=== PATIENT | female | born 1970 | race Native Hawaiian/Other Pacific Islander ===

== ENCOUNTER 2016-09-20 19:25 | Emergency (ER) | payer OTHER ==
[~2016-09-20] VITALS: Ht 167.6 cm; Wt 58.1 kg
[~2016-09-20 19:25] MED LIST: LIPITOR10 MG PO
[2016-09-20 20:06] LABS: PLATELET COUNT 287 K/uL (152-353)
[2016-09-20 20:56] VITALS: BP 111/69; TEMP 98.9
== END 2016-09-20 20:57 | disposition home or self-care (01) ==
LOC: ED 19:25
DX: R10.84 Generalized abdominal pain (principal); R80.8 Other proteinuria
CPT/HCPCS: 36415; 81000; 85027; 99283

== ENCOUNTER 2017-02-20 13:57 | Outpatient (CLI) | payer OTHER ==
[2017-02-20 14:35] LABS: PLATELET COUNT 347 K/uL (152-353)
[2017-02-20 15:29] LABS: POTASSIUM 4.1 mmol/L (3.6-5.2); SODIUM 133 mmol/L (136-145)
== END 2017-02-20 15:00 | disposition home or self-care (01) ==
LOC: LAB 13:57
PROVIDERS: Nurse Practitioner Family
DX: Z00.00 Encounter for general adult medical examination without abnormal findings (principal); K21.9 Gastro-esophageal reflux disease without esophagitis; E78.4 Other hyperlipidemia; R53.83 Other fatigue; R53.81 Other malaise; Z79.899 Other long term (current) drug therapy; Z51.81 Encounter for therapeutic drug level monitoring
CPT/HCPCS: 80053; 80061; 83036; 84436; 84443; 85027

== ENCOUNTER 2017-03-10 09:01 | Outpatient (CLI) | payer OTHER | END 2017-03-10 18:58 | disposition home or self-care (01) | LOC: MAMMO 09:01 | DX: Z12.31 Encounter for screening mammogram for malignant neoplasm of breast (principal) ==

== ENCOUNTER 2017-09-25 13:55 | Outpatient (CLI) | payer OTHER ==
[2017-09-25 14:17] LABS: PLATELET COUNT 308 K/uL (152-353)
== END 2017-09-25 20:28 | disposition home or self-care (01) ==
LOC: LAB 13:55
PROVIDERS: Nurse Practitioner Family
DX: Z79.899 Other long term (current) drug therapy (principal); Z51.81 Encounter for therapeutic drug level monitoring; E78.4 Other hyperlipidemia; K21.9 Gastro-esophageal reflux disease without esophagitis; R53.81 Other malaise
CPT/HCPCS: 80053; 80061; 82306; 83036; 84436; 84443; 85027; 85651

== ENCOUNTER 2018-05-04 11:07 | Outpatient (CLI) | payer OTHER | END 2018-05-04 19:42 | disposition home or self-care (01) | LOC: MAMMO 11:07 | DX: N63.20 Unspecified lump in the left breast, unspecified quadrant (principal) ==

== ENCOUNTER 2018-05-10 10:08 | Outpatient (CLI) | payer OTHER | END 2018-05-10 20:37 | disposition home or self-care (01) | LOC: US 10:08 | DX: R92.8 Other abnormal and inconclusive findings on diagnostic imaging of breast (principal) ==

== ENCOUNTER 2018-09-21 01:22 | Emergency (ER) | payer OTHER ==
[~2018-09-21] VITALS: Ht 167.6 cm; Wt 59.9 kg
[2018-09-21 03:04] VITALS: BP 121/84; TEMP 98
== END 2018-09-21 03:04 | disposition home or self-care (01) ==
LOC: ED 01:22
DX: M25.511 Pain in right shoulder (principal); R20.0 Anesthesia of skin
CPT/HCPCS: 99282

== ENCOUNTER 2020-03-08 19:16 | Emergency (ER) | payer OTHER | END 2020-03-08 19:37 | disposition home or self-care (01) | LOC: ED 19:16 | DX: M54.9 Dorsalgia, unspecified (principal); R10.9 Unspecified abdominal pain | CPT/HCPCS: 99281 ==

== ENCOUNTER 2020-07-06 08:52 | Outpatient (CLI) | payer OTHER | END 2020-07-06 19:42 | disposition home or self-care (01) | LOC: MAMMO 08:52 | PROVIDERS: ATTEND Nurse Practitioner Family | DX: N63.20 Unspecified lump in the left breast, unspecified quadrant (principal); Z12.31 Encounter for screening mammogram for malignant neoplasm of breast; F17.200 Nicotine dependence, unspecified, uncomplicated; N64.59 Other signs and symptoms in breast | CPT/HCPCS: G0279 ==

== ENCOUNTER 2021-07-21 09:19 | Outpatient (CLI) | payer OTHER ==
[~2021-07-21] VITALS: Ht 162.6 cm; Wt 83.9 kg
== END 2021-07-21 21:39 | disposition home or self-care (01) ==
LOC: US 09:19
PROVIDERS: ATTEND Nurse Practitioner Family
DX: R92.8 Other abnormal and inconclusive findings on diagnostic imaging of breast (principal)

== ENCOUNTER 2021-08-11 16:00 | Outpatient (CLI) | payer OTHER | END 2021-08-11 19:14 | disposition home or self-care (01) | LOC: US 16:00 | PROVIDERS: ATTEND Nurse Practitioner Family | DX: R59.0 Localized enlarged lymph nodes (principal) ==

== ENCOUNTER 2021-08-24 11:10 | Outpatient (CLI) | payer OTHER | END 2021-08-24 18:52 | disposition home or self-care (01) | LOC: US 11:10 | PROVIDERS: ATTEND Nurse Practitioner Family | DX: R60.0 Localized edema (principal) ==

== ENCOUNTER 2021-09-07 10:22 | Outpatient (CLI) | payer OTHER ==
[2021-09-07 11:16] LABS: PLATELET COUNT 292 K/uL (152-353)
[2021-09-07 11:27] LABS: POTASSIUM 4.1 mmol/L (3.6-5.2)
== END 2021-09-07 19:14 | disposition home or self-care (01) ==
LOC: LABW 10:22
PROVIDERS: ATTEND Nurse Practitioner Family
DX: R60.0 Localized edema (principal)
CPT/HCPCS: 36415; 80053; 85027; 87040

== ENCOUNTER 2022-01-04 15:56 | Outpatient (CLI) | payer OTHER | END 2022-01-04 20:35 | disposition home or self-care (01) | LOC: RAD 15:56 | PROVIDERS: ATTEND Nurse Practitioner Family | DX: R05.9 Cough, unspecified (principal) ==

== ENCOUNTER 2022-03-08 12:46 | Outpatient (CLI) | payer OTHER | END 2022-03-08 19:04 | disposition home or self-care (01) | LOC: US 12:46 | PROVIDERS: ATTEND Radiology Radiation Oncology | DX: C50.412 Malignant neoplasm of upper-outer quadrant of left female breast (principal) ==

== ENCOUNTER 2022-03-21 14:17 | Emergency (ER) | payer OTHER ==
[~2022-03-21] VITALS: Ht 162.6 cm; Wt 50.8 kg
[2022-03-21 14:20] VITALS: BP 99/70; TEMP 98.8
== END 2022-03-21 15:33 | disposition home or self-care (01) ==
LOC: ED 14:17
DX: J20.9 Acute bronchitis, unspecified (principal); Z20.822 Contact with and (suspected) exposure to COVID-19
CPT/HCPCS: 87635; 99282; U0003

== ENCOUNTER 2022-04-14 13:23 | Outpatient (CLI) | payer OTHER | END 2022-04-14 19:51 | disposition home or self-care (01) | LOC: MAMMO 13:23 | PROVIDERS: ATTEND Nurse Practitioner Family | DX: Z08 Encounter for follow-up examination after completed treatment for malignant neoplasm (principal); Z85.3 Personal history of malignant neoplasm of breast | CPT/HCPCS: G0279 ==

== ENCOUNTER 2023-05-02 08:20 | Outpatient (CLI) | payer OTHER ==
[~2023-05-02 08:20] MED LIST changes: +TAMOXIFEN20 MG PO
== END 2023-05-02 19:04 | disposition home or self-care (01) ==
LOC: MRI 08:20
PROVIDERS: ATTEND Nurse Practitioner
DX: C50.412 Malignant neoplasm of upper-outer quadrant of left female breast (principal); R91.1 Solitary pulmonary nodule; R06.09 Other forms of dyspnea; J43.9 Emphysema, unspecified; D64.89 Other specified anemias; D35.01 Benign neoplasm of right adrenal gland
CPT/HCPCS: A9576